=== PATIENT | male | born 1980 | race Caucasian/White ===

== ENCOUNTER → 2016-07-23 07:31 | Outpatient (CLI) | payer BC | END | disposition home or self-care (01) | LOC: D.CT 07:31 | DX: R10.9 Unspecified abdominal pain (principal) ==

== ENCOUNTER → 2016-07-31 07:43 | Outpatient (CLI) | payer BC | END | disposition home or self-care (01) | LOC: D.NM 07:43 | DX: R10.9 Unspecified abdominal pain (principal) ==